=== PATIENT | male | born 2000 | race African-American/Black ===

== ENCOUNTER 2020-11-15 13:22 | Emergency (ER) | payer MEDICAID ==
[~2020-11-15] VITALS: Ht 188 cm; Wt 69.0 kg
[2020-11-15] MEDS ORDERED: AMOX-494 MT (14:52)
[2020-11-15] MEDS ORDERED: IBUP-2029 MT (14:52)
[2020-11-15] MEDS ORDERED: IBUPROFEN 600MG TABLET PO ONE (15:00)
[2020-11-15] MEDS ORDERED: PREDNISONE 20MG TABLET PO ONE (15:00)
[2020-11-15 15:33] VITALS: BP 145/74
== END 2020-11-15 15:34 | disposition home or self-care (01) ==
LOC: ER 13:57
DX: J03.90 Acute tonsillitis, unspecified (principal)
CPT/HCPCS: 99283; J7512

== ENCOUNTER 2024-01-26 00:01 | Emergency (ER) | payer MEDICAID ==
[~2024-01-26] VITALS: Ht 190.5 cm; Wt 80.0 kg
[~2024-01-26 00:01] MED LIST: AMOX-494 MT; IBUP-2029 MT
[2024-01-26 00:20] VITALS: BP 120/76; PULSE 58; RESP 18; TEMP 98.5; O2SAT 100
[2024-01-26] MEDS ORDERED: AMOX-494 MT (02:23)
[2024-01-26] MEDS ORDERED: IBUP-2030 MT (02:23)
[2024-01-26] MEDS ORDERED: AMOXL215 MT (02:26)
== END 2024-01-26 02:36 | disposition home or self-care (01) ==
LOC: ER 00:01
DX: K04.7 Periapical abscess without sinus (principal)
CPT/HCPCS: 99283